=== PATIENT | female | born 1980 | race African-American/Black ===

== ENCOUNTER 2022-12-07 18:35 | Emergency (ER) | payer OTHER ==
[~2022-12-07] VITALS: Ht 160 cm; Wt 80.7 kg
[2022-12-07] MEDS ORDERED: CILOXAN5 ML OS (19:11)
== END 2022-12-07 19:14 | disposition home or self-care (01) ==
LOC: ER 18:52
DX: H10.89 Other conjunctivitis (principal)
CPT/HCPCS: 99282

== ENCOUNTER 2023-02-12 19:35 | Emergency (ER) | payer OTHER ==
[~2023-02-12] VITALS: Ht 160 cm; Wt 80.7 kg
[~2023-02-12 19:35] MED LIST: CILOXAN5 ML OS
[2023-02-12 19:58] VITALS: O2SAT 100
[2023-02-12] MEDS ORDERED: NAPROSYN500 MG PO (20:21)
[2023-02-12] MEDS ORDERED: CYCLOBENZAPRINE5 MG PO (20:21)
== END 2023-02-12 20:26 | disposition home or self-care (01) ==
LOC: ER 19:47
DX: M25.511 Pain in right shoulder (principal); F17.210 Nicotine dependence, cigarettes, uncomplicated
CPT/HCPCS: 99282

== ENCOUNTER 2024-11-12 20:44 | Emergency (ER) | payer OTHER ==
[~2024-11-12] VITALS: Ht 160 cm; Wt 80.7 kg
[~2024-11-12 20:44] MED LIST changes: +CYCLOBENZAPRINE5 MG PO; +KETOROLAC TROME10 MG PO; +NAPROSYN500 MG PO
[2024-11-12 21:10] VITALS: PULSE 98; RESP 16; TEMP 98.6; O2SAT 100
== END 2024-11-13 00:12 | disposition home or self-care (01) ==
LOC: ER 23:29
DX: L30.9 Dermatitis, unspecified (principal)
CPT/HCPCS: 99282